=== PATIENT | female | born 1970 | race Caucasian/White ===

== ENCOUNTER 2016-12-06 13:54 | Inpatient (IN) ==
--- NOTE | 2016-12-06 14:34 | PROVIDER DOCUMENTATION ---
[id number] Abuse/Overdose - General Chief Complaint: Alcohol Withdrawal Stated Complaint: VOMITING ALCOHOL WITHDRAWAL Time Seen by Provider: 12/06/16 14:22 Source: patient Allergies/Adverse Reactions: Allergies Allergy/AdvReac Type Severity Reaction Status Date / Time No Known Allergies Allergy Verified 09/26/16 14:40 Home Medications: Home Medication List Medication Instructions Recorded Confirmed Last Taken Type Sulfamethoxazole/Trimethoprim 1 each PO BID #10 tablet 09/26/16 Unknown Rx [Bactrim Ds Tablet] - History of Present Illness-Drug/Alcohol Nature of Presenting Problem: 45 yo female pt with hx of alcohol use/withdrawal presents with nausea and abdominal pain x 4 days. Is a daily drinker, approx 6 beers. Drank alcohol 4 days ago, then started to feel sick and didn't drank for 3 days. Tried to drink last night but couldn't keep anything down. Has not eaten in 4 days, only drinking water as tolerated. RUQ abdominal pain with diarrhea. Also having panic attacks, had one upon arrival to ED. Denies fever, chest pain, current SOB (had some with panic attack but has resolved), blood in stool, blood or coffee ground vomitus, falls, LOC, seizure, or current ill contacts. Has vomited up her daily medications of potassium and Tylenol. Has hx of Hep C. Denies other medication/drug use. This episode of drinking or use began:: 4 days ago Severity: reports: moderate Situational problems related to:: reports: N/A Psychiatric Complaints: reports: anxiety Associated Symptoms: reports: anxiety, back/neck pain (chronic), diarrhea, fatigue, headaches (chronic), loss of appetite, malaise, nausea, vomiting, weakness. denies: chest pain, constipation, cough, dizziness, EENT symptoms, fever/chills, genitourinary problems, sinus congestion/drainage, seizure, shortness of breath, sensory/motor loss, syncope, trouble walking Any injuries associated with this episode of intoxication?: No (denies falls or LOC) Similar Symptoms Previously?: Yes Recently seen or treated by another doctor?: No - Substance Abuse Substance Use: reports: alcohol - Alcohol Abuse Last Drink?: 21:00 (prior to symptoms as well) Usually drinks:: daily (6 beers daily per pt) Usual alcohol intake amount?: 6 beers - Overdose Suicide Risk Assessment: drug or ETOH abuse. negative: depressed Review of Systems - Adult - REVIEW OF SYSTEMS - ADULT Constitutional: reports: fatique. denies: chills, fever, night sweats Eyes: reports: no symptoms reported Ears, Nose, Mouth & Throat: denies: ear pain, nose pain, throat pain Cardiovascular: denies: chest pain, syncope Respiratory: denies: cough, excessive sputum production, hemoptysis, shortness of breath Gastrointestinal: reports: abdominal pain, diarrhea, nausea, poor appetite, vomiting. denies: hematemesis, constipation, difficulty swallowing, rectal bleeding Genitourinary: reports: no symptoms reported. denies: discharge, hematuria, incontinence Musculoskeletal: reports: back pain (chronic, takes Tylenol daily), muscle weakness. denies: neck pain Integumentary: denies: rash Neurological: reports: headache/migraines (has chronically, takes Tylenol daily) . denies: dizziness/vertigo, loss of balance, seizure, syncope Psychiatric: reports: anxiety, alcohol/drug dependence Past History - Adult - PAST MEDICAL HISTORY-ADULT Review of Records: reports: Old Records Reviewed, Nursing Assessment Review, Medications Reviewed, Social history reviewed & non-contributory. Major Childhood Illnesses: reports: denies history Cardiovascular: reports: denies history Respiratory: reports: denies history Gastrointestinal: reports: denies history Obstetrical/Gynecological: reports: denies history Genitourinary: reports: denies history Musculoskeletal: reports: denies history Neurological: reports: Seizures/Epilepsy Psychiatric: reports: anxiety Endocrine/Immune: reports: thyroid disorder Other Conditions: reports: denies history - PRIOR SURGERIES/PROCEDURES Surgical/Procedure History: reports: - IMMUNIZATION STATUS Childhood Immunizations: See Nurse Assessment Flu Vaccine: See Nurse Assessment - FAMILY HISTORY Family History: reviewed, not pertinent - SOCIAL HISTORY Smoking: cigarettes, less than 1 pack/day Provider spent 3-5 mins advising pt. on dangers of tobacco.: Discussed manners to quit use, and f/u contacts for add'l counseling. Substance Use: alcohol Physical Exam-General - PHYSICAL EXAM-ADULT Initial Vital Signs Reviewed: Yes (tachycardic) - CONSTITUTIONAL General Appearance: alert, moderate distress (Pt was standing when came in the room, able to ambulate to bed), thin - EYES Eyes: PERRL/EOMI, scleral icterus. negative: EOM palsy, pale conjunctivae, sunken eyes - HEAD, EARS, NOSE, MOUTH & THROAT HENMT: moist mucous membranes, other (assymmetry of cheeks, nontender.) - NECK Neck: non-tender, supple. negative: thyromegaly - RESPIRATORY Respiratory: normal breath sounds, no pleuratic chest pain, no respiratory distress, no accessory muscle use. negative: crackles, rales, rhonchi, stridor , wheezing - CARDIOVASCULAR Cardiovascular: no gallop, no JVD, no murmur, tachycardia - GASTROINTESTINAL (ABDOMEN) Abdominal Exam: normal bowel sounds, no pulsatile mass, tenderness (RUQ and epigastric). negative: abdominal bruit, guarding, rigid, rebound, mass - LYMPHATIC Lymphatic: negative: cervical node tenderness, enlargement - MUSCULOSKELETAL Extremity: normal range of motion, normal inspection, no pedal edema. negative : pulse deficit, pedal edema, swelling, tenderness Peripheral Pulses: radial (R): 1+, radial (L): 1+, dorsalis-pedis (R): 1+, dorsalis-pedis (L): 1+ - SKIN Integumentary: warm/dry - NEUROLOGIC Neurologic: tree trimmer II-XII nml as tested, no motor/sensory deficits. negative: facial droop, focal weakness, motor weakness, sensory deficit - PSYCHIATRIC Psych/Mental Status: normal mood/affect, oriented x 3 Progress - PLAN OF CARE/RESULTS Progress/Plan/Lab Results: Vital Signs - 8 hr 12/06/16 16:00 12/06/16 18:00 12/06/16 19:24 Temperature 98.8 F Pulse Rate 108 H 106 H 109 H Respiratory Rate 10 L 20 20 Blood Pressure 145/99 160/98 157/95 O2 Sat by Pulse Oximetry 98 98 98 Laboratory Results - last 24 hr 12/06/16 12/06/16 12/06/16 15:17 15:17 15:17 WBC 6.98 RBC 4.30 Hgb 14.5 Hct 40.2 MCV 93.5 MCH 33.7 H MCHC 36.1 RDW Std Deviation 11.6 Plt Count 164 MPV 10.9 H Immature Gran % (Auto) 0.1 Neut % (Auto) 63.4 Lymph % (Auto) 24.8 [place] % (Auto) 11.6 H Eos % (Auto) 0.0 Baso % (Auto) 0.1 Immature Gran # (Auto) 0.01 Neut # (Auto) 4.42 Lymph # (Auto) 1.73 [place] # (Auto) 0.81 H Eos # (Auto) 0.00 Baso # (Auto) 0.01 PT INR APTT (Factor Assay) Sodium 121 L Potassium 2.6 L Chloride 78 L Carbon Dioxide 28 Anion Gap 16 BUN 16 Creatinine 0.4 L Estimated GFR/1.73 m2 > 60 BUN/Creatinine Ratio 40 Glucose 109 H Calculated Osmolality 246 Calcium 9.3 Phosphorus Magnesium Total Bilirubin 1.80 H AST 48 H ALT 29 Alkaline Phosphatase 65 Total Protein 8.2 Albumin 4.0 Globulin 4.0 Albumin/Globulin Ratio 1.0 Lipase Urine Source Urine Color Urine Clarity Urine pH Ur Specific [place] Urine Protein Urine Ketones Urine Blood Urine Nitrite Urine Bilirubin Urine Urobilinogen Urine Microscopic RBC Urine WBC Urine Microscopic WBC Ur Epithelial Cells Urine Glucose Plasma/Serum Ethyl Alc 12/06/16 12/06/16 12/06/16 15:17 15:17 17:00 WBC RBC Hgb Hct MCV MCH MCHC RDW Std Deviation Plt Count MPV Immature Gran % (Auto) Neut % (Auto) Lymph % (Auto) [place] % (Auto) Eos % (Auto) Baso % (Auto) Immature Gran # (Auto) Neut # (Auto) Lymph # (Auto) [place] # (Auto) Eos # (Auto) Baso # (Auto) PT 12.3 INR 0.88 APTT (Factor Assay) 26.4 Sodium Potassium Chloride Carbon Dioxide Anion Gap BUN Creatinine Estimated GFR/1.73 m2 BUN/Creatinine Ratio Glucose Calculated Osmolality Calcium Phosphorus Magnesium Total Bilirubin AST ALT Alkaline Phosphatase Total Protein Albumin Globulin Albumin/Globulin Ratio Lipase 51 Urine Source CLEAN CATCH Urine Color YELLOW Urine Clarity CLEAR Urine pH 6.5 Ur Specific [place] 1.010 Urine Protein TRACE A Urine Ketones NEGATIVE Urine Blood TRACE Urine Nitrite NEGATIVE Urine Bilirubin NEGATIVE Urine Urobilinogen NORMAL Urine Microscopic RBC Not Reportable Urine WBC TRACE A Urine Microscopic WBC <10 Ur Epithelial Cells <10 Urine Glucose NEGATIVE Plasma/Serum Ethyl Alc 12/06/16 18:35 WBC RBC Hgb Hct MCV MCH MCHC RDW Std Deviation Plt Count MPV Immature Gran % (Auto) Neut % (Auto) Lymph % (Auto) [place] % (Auto) Eos % (Auto) Baso % (Auto) Immature Gran # (Auto) Neut # (Auto) Lymph # (Auto) [place] # (Auto) Eos # (Auto) Baso # (Auto) PT INR APTT (Factor Assay) Sodium Potassium Chloride Carbon Dioxide Anion Gap BUN Creatinine Estimated GFR/1.73 m2 BUN/Creatinine Ratio Glucose Calculated Osmolality Calcium Phosphorus 2.8 Magnesium 1.5 Total Bilirubin AST ALT Alkaline Phosphatase Total Protein Albumin Globulin Albumin/Globulin Ratio Lipase Urine Source Urine Color Urine Clarity Urine pH Ur Specific [place] Urine Protein Urine Ketones Urine Blood Urine Nitrite Urine Bilirubin Urine Urobilinogen Urine Microscopic RBC Urine WBC Urine Microscopic WBC Ur Epithelial Cells Urine Glucose Plasma/Serum Ethyl Alc Orders Category Date Time Status Admit - [facility] Routine AdmDCTranf 12/06/16 19:08 Ordered Activity - Up with Assistance ORDERED Care 12/06/16 18:39 Active Blood Glucose Finger Stick [FSBS/Accucheck Result] NOW Care 12/06/16 14:58 Active Intake and Output-Strict ORDERED Care 12/06/16 18:39 Active Saline Loc NOW Care 12/06/16 14:52 Active Vital Signs Order Q 8-HR ASSESS Care 12/06/16 18:39 Active NPO Diet 12/06/16 18:41 Active CHEST-2 VIEWS [RAD] Stat Exams 12/06/16 16:23 Draft ALCOHOL BLOOD Stat Lab 12/06/16 15:17 Completed CBC WITH DIFF [HEME] Routine Lab 12/07/16 06:00 Ordered CBC WITH DIFF [HEME] Stat Lab 12/06/16 15:17 Completed COMPREHENSIVE METABOLIC PANEL [CHEM] Routine Lab 12/07/16 06:00 Ordered COMPREHENSIVE METABOLIC PANEL [CHEM] Stat Lab 12/06/16 15:17 Completed LIPASE [CHEM] Stat Lab 12/06/16 15:17 Completed MAGNESIUM [CHEM] Routine Lab 12/07/16 06:00 Ordered MAGNESIUM [CHEM] Stat Lab 12/06/16 18:35 Completed PHOSPHORUS [CHEM] Stat Lab 12/06/16 18:35 Completed [address]IME WITH INR PL [COAG] Stat Lab 12/06/16 15:[address] [COAG] Stat Lab 12/06/16 15:17 Completed TSH Routine Lab 12/07/16 06:00 Ordered UA NIMS W/REFLEX CULT PL [URINALYSIS] Stat Lab 12/06/16 17:00 Completed 0.9% Sodium Chloride Inj [Ns] 1,000 ml Med 12/06/16 16:23 Discontinued IV 999 mls/hr Chlordiazepoxide [Librium] Med 12/06/16 21:00 Active 50 mg PO BID Enoxaparin [Lovenox] Med 12/06/16 18:00 Active 40 mg SUBQ Q24H Lorazepam [Ativan] Med 12/06/16 18:44 Active 1 mg IV Q4H PRN PRN Magnesium Sulfate 2 gm/S.w.i. [Magnesium Sulfate 2 gm/S Med 12/06/16 18:43 Discontinued .w.i] 2 gm in 50 ml IV NOW Mvi [M.v.i.-12] 10 ml Med 12/06/16 18:45 Active Folic Acid 1 mg Magnesium Sulfate 1 gm Thiamine 100 mg 0.9% Sodium Chloride Inj [Ns] 1,000 ml IV Q24H Ns + KCl 20 Meq 1,000 ml Med 12/06/16 18:42 Active IV 125 mls/hr Ondansetron [Zofran] Med 12/06/16 18:37 Active 4 mg IV Q4H PRN PRN Potassium Chloride E.r. [Klor-Con] Med 12/06/16 16:23 Discontinued 40 meq PO NOW ONE Potassium Chloride E.r. [Klor-Con] Med 12/06/16 16:38 Discontinued 60 meq PO NOW ONE Telemetry [OM.EQ] Routine Oth 12/06/16 18:39 Active EKG [EKG] Stat Ther 12/06/16 16:23 Draft Transfer/Admit Order [TRANSFER] Routine Transfer 12/06/16 18:45 Ordered Lab report shows hypokalemia and hyponatremia. Ordered bolus of NS and K+ 60 mEq PO now. Pt candidate for admission. Discussed case with Dr. Gibbs who agrees with plan and admission. EKG reviewed, CXR ordered. Waiting further labs. Result Diagrams: 12/06/16 15:17 12/06/16 15:17 - CONSULTS/PCP/HOSPITALIST Notification #1 *Consult/PCP/Hospitalist*: Hospitalist Dr. Bass Time Discussed: 17:42 Reason/Comments: Admission for ETOH withdrawal, hypokalemia, hyponatremia Consult Disposition: Admit Departure - Departure Time of Disposition Decision: 17:40 DIAGNOSIS: Hyponatremia, Hypokalemia Alcohol withdrawal Qualifiers: Complication of substance-induced condition: uncomplicated Qualified Code(s): F10.230 - Alcohol dependence with withdrawal, uncomplicated Disposition: ADMITTED INPATIENT 09 Certified Medical Emergency: Emergent Condition: Stable Attestation - Physician/ FRANCY Attestation Patient care was provided by Advanced Practice Provider:: Yes Advanced Practice Provider:: Vinicio Correa Advanced Practice Provider documentation review:: The Mid-level provider documentation, treatment plan and medical decision making was reviewed by the physician who agrees with all treatment and medical decision making by the MLP.
[2016-12-06 15:45] LABS: AGAP 16; ALKALINE PHOSPHATASE 65 U/L (32-104); BUN 16 mg/dL (8-22); CALCIUM 9.3 mg/dL (8.8-10.2); CHLORIDE 78 mmol/L (98-107); COSMO 246; GOT 48 U/L (10-30); GPT 29 U/L (10-36); POTASSIUM 2.6 mmol/L (3.5-5.1); SODIUM 121 mmol/L (136-145); TCO2 28 mmol/L (25-35); TOTAL PROTEIN 8.2 g/dL (6.3-8.3)
[2016-12-06] MEDS ORDERED: KLOR-CON PO ONE ×2 (16:23→16:38)
[2016-12-06] MEDS ORDERED: NS 1,000 ML IV ONE (16:23)
[2016-12-06 16:27] LABS: MANUAL DIFF NEEDED? NO
[2016-12-06 16:31] LABS: BASO% 0.1 % (0.0-0.8); HEMATOCRIT 40.2 % (37.0-47.0); HEMOGLOBIN 14.5 g/dL (12.0-16.0); IMM GRAN# 0.01 X1000 (0.0-0.04); IMM GRAN% 0.1 % (0.0-0.5); LYMPH# 1.73 X1000 (1.2-3.4); LYMPH% 24.8 % (20.5-51.1); MCH 33.7 PG (27-31); MCHC 36.1 g/dL (33-37); MCV 93.5 FL (81-99); MONO# 0.81 X1000 (0.11-0.59); MONO% 11.6 % (1.7-9.3); MPV 10.9 FL (7.4-10.4); NEUT% 63.4 % (42.2-75.2); PLT 164 X1000 (130-400)
[2016-12-06 16:34] LABS: INR 0.88 (0.86-1.15); PROTIME 12.3 Seconds (12.1-15.5); PTT PL 26.4 Seconds (22.6-43.9)
--- NOTE | 2016-12-06 16:59 | EKG Report ---
Test Performed on : 12/06/2016 4:22:16 PM Test Reason : hypokalemia, hyponatremia Blood Pressure : / mmHG Vent. Rate : 111 BPM Atrial Rate : 111 BPM P-R Int : 126 ms QRS Dur : 078 ms QT Int : 360 ms P-R-T Axes : -27 092 071 degrees QTc Int : 489 ms Sinus tachycardia. Rightward axis Borderline ECG When compared with ECG of 16-APR-2016 16:59, No significant change was found Unconfirmed Result
[2016-12-06 17:16] LABS: URINE CULTURE PL NEEDED? NO
--- NOTE | 2016-12-06 17:19 | Diag Imaging Result Document ---
PROCEDURE NAME: CHEST-2 VIEWS - 12/06/2016 CHEST, 2 VIEWS: INDICATION: Electrolyte abnormalities. Smoker. COMPARISON: 06/21/2011. FINDINGS: There is pulmonary emphysema. Cardiomediastinal silhouette is within normal limits. No infiltrate, effusion, or pneumothorax is noted. Posttraumatic rib deformities, right hemithorax, are unchanged. IMPRESSION: Pulmonary emphysema. No acute abnormalities.
[2016-12-06 17:24] LABS: BILIRUBIN URINE NEGATIVE (NEGATIVE); BLOOD URINE TRACE (NEGATIVE); CLARITY CLEAR (CLEAR); COLOR YELLOW; GLUCOSE URINE NEGATIVE (NEGATIVE); LEUKOCYTES URINE TRACE (NEGATIVE); NITRITE URINE NEGATIVE (NEGATIVE); PH URINE 6.5; PROTEIN URINE TRACE mg/dL (NEGATIVE); UROBILINOGEN URINE NORMAL
[2016-12-06 17:29] LABS: URINE EPITHELIAL CELLS <10 /HPF (<10); URINE SOURCE CLEAN CATCH; URINE WBC <10 /HPF (<10)
[2016-12-06] MEDS ORDERED: NS + KCL 20 MEQ 1,000 ML IV ONE (18:42)
[2016-12-06] MEDS ORDERED: MAGNESIUM SULFATE 2 GM/S.W.I. 2 GM/50 ML IVPB IV ONE ×2 (18:43→23:00)
[2016-12-06 18:58] LABS: MAGNESIUM 1.5 mg/dL (1.5-2.7)
[2016-12-06] MEDS: M.V.I.-12 10 ML, FOLIC ACID 1 MG, MAGNESIUM SULFATE 1 GM, THIAMINE 100 MG in NS 1,000 ML IV SCH (19:20)
--- NOTE | 2016-12-06 20:11 | HISTORY AND PHYSICAL ---
PRESENTING COMPLAINT: Nausea and vomiting. HISTORY OF PRESENTING COMPLAINT: Ms Clarke is a 45-year-old female with a history of alcohol abuse who has been admitted here on 2 different occasions for the same presentation. Last time she was here was on June 2016 and discharged a day after. This time she refers that she has been drinking about 6 packs of beer on daily basis. Yesterday started having vomiting which was intractable so she decided to come into the emergency department where she was evaluated and was found to have very erratic electrolytes including a sodium of 121, potassium was 7.6 and chloride 78, was deemed necessary to admit her to correct her electrolytes abnormalities. PAST MEDICAL HISTORY: 1. History hepatitis C. 2. Alcohol abuse. 3. Chronic drug abuse. 4. Previous seizures due to withdrawal syndrome. PAST SURGICAL HISTORY: 3 times Hysterectomy ALLERGIES: None. HOME MEDICATIONS: None. SOCIAL HISTORY: Patient lives with a boyfriend who also drinks. She smokes but she has about 30 years pack history and she drinks 6 pack of beer on daily basis for the past 20 years. REVIEW OF SYSTEMS: 14 point review of system conducted with the patient is unremarkable except what we have in the HPI. Specifically patient denies any diarrhea, denies any shortness of breath or chest pain. PHYSICAL EXAM: VITALS: Blood pressure is 133/86, pulse of 115, temperature 97.8 degrees, respirations 30. GENERAL: Ms Clarke is a 45-year-old female. She was in bed. Did not seems to be in any remarkable distress. HEENT: Mucosa is pink and dry. Anicteric. Acyanotic. NECK: Supple. No JVD. CHEST: Good air entry bilaterally. No accessory muscle use. No crepitations and no rhonchi. CARDIOVASCULAR: Regular rate and rhythm. No murmurs, no rubs. No gallops. ABDOMEN: Soft, mildly tender all over but there is no any guarding or rebound. Bowel sounds are present. SAFETY ADVISOR: Patient is alert and oriented x4. Motor is 5/5 in all 4 extremities. There is no sensory deficit. Cranial nerves 2-12 have been grossly examined and are unremarkable. I did not examine the gait or cerebellar functions but patient does not have any asterixis or residual tremors. At the moment patient denies of any hallucinations. LABORATORY DATA: WBC is 6.98, hemoglobin is 14.5, platelet count of 164,000. Chemistry: Sodium is 121, potassium is 2.6, chloride is 78, bicarb is 28, total bilirubin is 1.8, AST is 48. Urinalysis is unremarkable. Toxicology. Plasma ethanol is 0. Serum osmolarity is 246. ASSESSMENT: Ms Clarke is a chronic alcohol binger who presented to the emergency department because of intractable vomiting, was found to have very abnormal electrolytes and we are admitting to correct abnormalities. 1. Intractable nausea and vomiting. 2. Severe electrolyte abnormality including hypokalemia. 3. Hyponatremia secondary to dehydration. 4. Ethanol abuse with tendency to major withdrawals. 5. History of hepatitis C. 6. Recreational drug abuse. PLAN: 1. We are going to admit Mr. Clarke to the medical floor with telemetry. Will continue with adequate IV fluids with normal saline at 125-150 mL/h. We would replace all the electrolytes abnormality including the potassium. I would do a magnesium level to see where that this. I guess that is going to be low as well as well as phosphorus so we can replace all of that. 2. Will keep the patient NPO until the nausea and vomiting is abated. Will put her on Zofran for this. I will check on the lipase just to make sure she is not in any acute pancreatitis. 3. Will put the patient on thiamine for replacement and also start her on Librium to prevent major withdrawal. cc: Jeff Bass MD [facility]
[2016-12-06] MEDS: LOVENOX SUBQ SCH (22:10)
[2016-12-06] MEDS: LIBRIUM PO SCH (22:10)
[2016-12-06] MEDS: ZOFRAN IV PRN (22:21)
[2016-12-06] MEDS: ATIVAN IV PRN (23:50)
[2016-12-07 06:23] LABS: MANUAL DIFF NEEDED? NO
[2016-12-07 06:39] LABS: BASO% 0.5 % (0.0-0.8); EOS# 0.02 X1000 (0.0-0.7); EOS% 0.3 % (0.0-10.0); HEMATOCRIT 39.4 % (37.0-47.0); HEMOGLOBIN 13.6 g/dL (12.0-16.0); LYMPH# 2.03 X1000 (1.2-3.4); LYMPH% 35.1 % (20.5-51.1); MCH 33.2 PG (27-31); MCHC 34.5 g/dL (33-37); MCV 96.1 FL (81-99); MONO# 0.82 X1000 (0.11-0.59); MONO% 14.2 % (1.7-9.3); MPV 10.8 FL (7.4-10.4); NEUT% 49.9 % (42.2-75.2); PLT 150 X1000 (130-400)
[2016-12-07 07:12] LABS: AGAP 10; ALBUMIN 3.5 g/dL (3.5-5.0); ALKALINE PHOSPHATASE 64 U/L (32-104); BUN 13 mg/dL (8-22); CALCIUM 8.4 mg/dL (8.8-10.2); CHLORIDE 98 mmol/L (98-107); COSMO 264; GOT 34 U/L (10-30); GPT 22 U/L (10-36); MAGNESIUM 2.1 mg/dL (1.5-2.7); POTASSIUM 3.3 mmol/L (3.5-5.1); SODIUM 132 mmol/L (136-145); TCO2 24 mmol/L (25-35)
[2016-12-07] MEDS: LIBRIUM PO SCH ×3 (09:04→20:59)
[2016-12-07] MEDS ORDERED: KLOR-CON PO ONE ×2 (09:14→11:45)
[2016-12-07] MEDS: ATIVAN IV PRN ×3 (11:31→21:46)
[2016-12-07] MEDS: ZOFRAN IV PRN ×2 (11:32→14:50)
[2016-12-07] MEDS ORDERED: SYNTHROID PO ONE (15:03)
[2016-12-07] MEDS ORDERED: SODIUM CHLORIDE 0.9% INJ ONE (15:30)
--- NOTE | 2016-12-07 15:54 | PROGRESS NOTE ---
DATE: 12/07/2016 SUBJECTIVE: Today Mr. Clarke refers to be doing a whole lot better. Denies any nausea and vomiting. She has been tolerating her diet very well. OBJECTIVE: Vital signs: Blood pressure is 131/72, pulse of 110, respirations 19, temperature is 98.4 degrees. General: Ms. Clarke is a 45-year-old female, who looks older than her age. She was in bed. She did not seem to be in any distress. HEENT: Mucosa is pink and moist. Anicteric and acyanotic. Neck: Supple. Chest: Good air entry bilateral. No crepitations. No rhonchi. Cardiovascular: Regular rate and rhythm. Abdomen: Soft, nontender. Extremities: No pedal edema. MANAGER OF HEALTH: Patient is alert and oriented x4. LABORATORY DATA: CBC is reviewed and is completely unremarkable. Chemistry: Sodium is 132. That is improved from yesterday which was 121. Potassium is 3.3, chloride is 98, bicarb is 24, AST is down to 34. TSH is 8.82. ASSESSMENT: 1. Intractable nausea and vomiting. This has improved. 2. Severe electrolyte abnormality, including hypokalemia and hyponatremia, which I think was related to the nausea and vomiting and dehydration. This seems to be improving. We will continue with adequate hydration and potassium supplementation. 3. Ethanol abuse with tendency to major withdrawals. Patient is currently on Librium and p.r.n. Ativan. Seems to be doing fine. 4. History of hepatitis C. 5. Recreational drug abuse. 6. Elevated thyroid stimulating hormones. Patient has a history of hypothyroidism. According to her, one of her physician's discontinued her Synthroid, but I think this is all part of her hypothyroidism. I will check a TPO and also a cholesterol level, but I think eventually patient needs to be on that because going all the way back to 2014, she did have lab evidence of severe hypothyroidism. 7. Adrenal insufficiency. There is a previous lab in 04/17/2016 which showed cortisol level of 6.7, this was a ridiculously low. I am not sure if the patient has a true adrenal insufficiency or if this was just a transient adrenal insufficiency. I am going to repeat the cortisol level and also do a stim test to have a better idea since patient keeps coming in for nausea and vomiting and most of the time we attribute it to her alcohol binge. It may be there might be a genuine underlying adrenal insufficiency that we have not been treating. cc: Jeff Bass MD
[2016-12-07] MEDS: NS + KCL 20 MEQ 1,000 ML IV SCH (16:00)
[2016-12-07] MEDS: LOVENOX SUBQ SCH (17:09)
[2016-12-07] MEDS: M.V.I.-12 10 ML, FOLIC ACID 1 MG, MAGNESIUM SULFATE 1 GM, THIAMINE 100 MG in NS 1,000 ML IV SCH (17:59)
[2016-12-07] MEDS ORDERED: TYLENOL PO PRN (23:10)
[2016-12-08] MEDS: NS + KCL 20 MEQ 1,000 ML IV SCH (05:20)
[2016-12-08] MEDS ORDERED: CORTROSYN IV ONE (06:00)
[2016-12-08] MEDS ORDERED: SODIUM CHLORIDE 0.9% INJ ONE (06:00)
[2016-12-08] MEDS ORDERED: SYNTHROID PO SCH (07:00)
[2016-12-08 07:07] LABS: MANUAL DIFF NEEDED? NO
[2016-12-08 07:18] LABS: BASO% 0.7 % (0.0-0.8); EOS% 1.7 % (0.0-10.0); HEMATOCRIT 37.9 % (37.0-47.0); HEMOGLOBIN 12.4 g/dL (12.0-16.0); IMM GRAN# 0.01 X1000 (0.0-0.04); IMM GRAN% 0.2 % (0.0-0.5); LYMPH# 2.61 X1000 (1.2-3.4); LYMPH% 43.3 % (20.5-51.1); MCH 32.6 PG (27-31); MCHC 32.7 g/dL (33-37); MCV 99.7 FL (81-99); MONO# 0.61 X1000 (0.11-0.59); MONO% 10.1 % (1.7-9.3); MPV 10.8 FL (7.4-10.4); PLT 161 X1000 (130-400)
[2016-12-08 07:37] LABS: HDL 101 mg/dL (45-65); LDL 51 mg/dL; TRIGLYCERIDES 41 mg/dL (35-135); VLDL 8 mg/dL
[2016-12-08 07:50] LABS: AGAP 10; BUN 9 mg/dL (8-22); CALCIUM 8.5 mg/dL (8.8-10.2); CHLORIDE 105 mmol/L (98-107); COSMO 274; POTASSIUM 4.3 mmol/L (3.5-5.1); SODIUM 138 mmol/L (136-145); TCO2 23 mmol/L (25-35)
[2016-12-08] MEDS: LIBRIUM PO SCH (09:00)
--- NOTE | 2016-12-08 11:58 | DISCHARGE SUMMARY ---
ADMISSION DATE: 12/06/2016 DISCHARGE DATE: 12/08/2016 ADMISSION DIAGNOSES: 1. Intractable nausea and vomiting. 2. Severe electrolyte abnormality including hypokalemia. 3. Hyponatremia secondary to dehydration. 4. Ethanol abuse with tendency to major withdrawal. 5. History of hepatitis C. 6. Recreational drug abuse. DISCHARGE DIAGNOSES: 1. Intractable nausea, vomiting, resolved. 2. Severe electrolyte abnormality resolved. 3. Ethanol abuse with tendency to major withdrawal. 4. History of hepatitis C. 5. Recreational drug use. 6. Hypothyroidism. 7. Adrenal insufficiency. SUMMARY OF FINDINGS: This is a 45-year-old, female with a history of alcohol abuse who has been admitted here on 2 different occasions with the same presentation. Last time here was June, and discharged the day after. States that she has been drinking about a 6 pack of beer on a daily basis and began vomiting on the day prior to arrival. That was intractable so she decided to come to the emergency department. Was found to have a sodium of 121, potassium was 7.6, chloride was 78. She was admitted, placed on IV hydration. We supplemented her potassium, held NPO initially. Her electrolytes have all improved. Sodium is up to 138 today. Potassium is at 4.3. She was noted on 12/07/2016 to have an elevated TSH level. Stated that her physician had taken her off of her medications a while back, but it is felt that some of this may be related to her hypothyroidism so we started her back on low-dose 50 mcg p.o. daily, and it is felt now that she can safely be discharged home. DISCHARGE MEDICATIONS: 1. She is given a prescription for the levothyroxine 50 mcg p.o. daily #60 with no refills. 2. Cortef 5 mg p.o. at bedtime #30 with no refills. 3. Librium 10 mg p.o. b.i.d. #20 with no refills. FOLLOWUP: She will need to follow with an sales representative sales manager in [place] of her choice to follow along with her adrenal insufficiency and hypothyroidism. It was discussed at length with this patient about cessation of ETOH due to her multiple medical problems. She verbalizes understanding. TIME SPENT ON DISCHARGE: 35 minute discharge. Dictated by ADRIAN Sanches for Jeff Bass MD cc: ADRIAN Sanches MD
[2016-12-08 14:30] VITALS: BP 160/92
[2016-12-08] MEDS ORDERED: CORTEF PO SCH (21:00)
== END 2016-12-08 16:52 | disposition home or self-care (01) ==
LOC: P.ED 13:54 → P.MEDSURG 19:39
PROVIDERS: ATTEND Internal Medicine

== ENCOUNTER 2017-02-01 08:53 | Inpatient (IN) ==
[2017-02-01] MEDS ORDERED: ATIVAN IV ONE ×2 (08:56→11:22)
[2017-02-01] MEDS ORDERED: ZOFRAN IV ONE (09:03)
[2017-02-01 09:17] LABS: MANUAL DIFF NEEDED? NO
[2017-02-01 09:27] LABS: UR AMPHETAMINES QUAL NONE DETECTED (NONE DETECT); UR BARBITUATES QUAL NONE DETECTED (NONE DETECT); UR BENZODIAZEPIN QUAL NONE DETECTED (NONE DETECT); UR CANNABINOIDS QUAL PRESUMPTIVE POSITIVE (NONE DETECT); UR COCAINE QUAL PRESUMPTIVE POSITIVE (NONE DETECT); UR MDMA QUAL NONE DETECTED (NONE DETECT); UR METHADONE QUAL NONE DETECTED (NONE DETECT); UR METHAMPHETAMINE QUAL NONE DETECTED (NONE DETECT); UR OPIATES QUAL NONE DETECTED (NONE DETECT); UR OXYCODONE QUAL NONE DETECTED (NONE DETECT); UR PCP QUAL NONE DETECTED (NONE DETECT); UR TCA QUAL NONE DETECTED (NONE DETECT)
[2017-02-01 09:39] LABS: AGAP 20; ALBUMIN 4.9 g/dL (3.5-5.0); ALKALINE PHOSPHATASE 74 U/L (32-104); BUN 5 mg/dL (8-22); CALCIUM 9.4 mg/dL (8.8-10.2); CHLORIDE 84 mmol/L (98-107); COSMO 264; GOT 74 U/L (10-30); GPT 44 U/L (10-36); MAGNESIUM 1.2 mg/dL (1.5-2.7); SODIUM 133 mmol/L (136-145); TCO2 30 mmol/L (25-35); TOTAL PROTEIN 9.7 g/dL (6.3-8.3)
[2017-02-01 09:42] LABS: BASO% 0.2 % (0.0-0.8); HEMATOCRIT 42.7 % (37.0-47.0); HEMOGLOBIN 14.8 g/dL (12.0-16.0); IMM GRAN# 0.02 X1000 (0.0-0.04); IMM GRAN% 0.1 % (0.0-0.5); LYMPH# 1.14 X1000 (1.2-3.4); LYMPH% 8.4 % (20.5-51.1); MCH 32.7 PG (27-31); MCHC 34.7 g/dL (33-37); MCV 94.3 FL (81-99); MONO# 0.67 X1000 (0.11-0.59); MPV 10.5 FL (7.4-10.4); NEUT% 86.3 % (42.2-75.2); PLT 200 X1000 (130-400); RBC 4.53 XMIL (4.2-5.4)
[2017-02-01 09:48] LABS: POTASSIUM 2.5 mmol/L (3.5-5.1)
[2017-02-01] MEDS: M.V.I.-12 10 ML, FOLIC ACID 1 MG, MAGNESIUM SULFATE 1 GM, THIAMINE 100 MG in NS 1,000 ML IV SCH (09:50)
[2017-02-01] MEDS ORDERED: KLOR-CON PO ONE (09:51)
[2017-02-01] MEDS ORDERED: APRESOLINE IV ONE (10:36)
--- NOTE | 2017-02-01 10:41 | PROVIDER DOCUMENTATION ---
This chart was entered by Krysta Chakraborty Scribe, acting as scribe for Elyse Gibbs MD. HPI-General Adult - General Chief Complaint: Alcohol Withdrawal Stated Complaint: ETOH Withdrawal Time Seen by Provider: 02/01/17 08:56 Source: patient Allergies/Adverse Reactions: Patient Allergies Allergy/AdvReac Type Severity Reaction Status Date / Time No Known Allergies Allergy Verified 09/26/16 14:40 Home Medications: Home Medication List Medication Instructions Recorded Confirmed Last Taken Type Potassium Bicarbonate/Cit AC 25 meq PO DAILY 02/01/17 02/01/17 01/31/17 History [Potassium 25 Meq Tablet Eff] - History of Present Illness -Gen Adult Nature of Presenting Problems: Pt is 46 y/o F presents to the ED with N and V. Pt states symptoms have been present for 24 hrs. Pt denies F or chills. Pt states hx of seizures. Pt states seizure yesterday but has not had one today. Pt states having an alcoholic drink yesterday at 1200. Location of Pain/Injury: reports: none Pain Radiation: reports: no radiation Quality of Pain: reports: none Severity: reports: mild Onset/Duration: reports: 24 hours ago Timing: reports: still present Context/Activities at Onset: reports: light activity Modifying Factors: improves with: nothing Associated Symptoms: reports: nausea, vomiting. denies: anxiety, arm pain, back /neck pain, chest pain, constipation, cough, diaphoresis, diarrhea, dizziness, EENT symptoms, fatigue, fever/chills, genitourinary problems, headaches, heartburn, joint pain, loss of appetite, malaise, muscle aches, sinus congestion /drainage, rash, seizure, shortness of breath, sensory/motor loss, pain with inspiration, swelling/mass in abdomen, syncope, weakness, trouble walking Similar Symptoms Previously?: Yes Recently seen or treated by another doctor?: No Review of Systems - Adult - REVIEW OF SYSTEMS - ADULT Constitutional: reports: no symptoms reported Eyes: reports: no symptoms reported Ears, Nose, Mouth & Throat: reports: no symptoms reported Cardiovascular: reports: no symptoms reported Respiratory: reports: no symptoms reported Gastrointestinal: reports: nausea, vomiting. denies: abdominal pain, diarrhea Genitourinary: reports: no symptoms reported Musculoskeletal: reports: no symptoms reported Integumentary: reports: no symptoms reported Neurological: reports: no symptoms reported Psychiatric: reports: no symptoms reported Endocrine: reports: no symptoms reported Hematologic/Lymphatic: reports: no symptoms reported Allergic/Immunologic: reports: no symptoms reported All Other Systems: Reviewed and Negative Past History - Adult - PAST MEDICAL HISTORY-ADULT Review of Records: reports: Nursing Assessment Review, Medications Reviewed, Social history reviewed & non-contributory. Major Childhood Illnesses: reports: denies history Cardiovascular: reports: denies history Respiratory: reports: denies history Gastrointestinal: reports: denies history Obstetrical/Gynecological: reports: denies history Genitourinary: reports: denies history Musculoskeletal: reports: denies history Neurological: reports: Seizures/Epilepsy Psychiatric: reports: anxiety Endocrine/Immune: reports: thyroid disorder Other Conditions: reports: denies history - PRIOR SURGERIES/PROCEDURES Surgical/Procedure History: reports: - IMMUNIZATION STATUS Childhood Immunizations: See Nurse Assessment Flu Vaccine: See Nurse Assessment - FAMILY HISTORY Family History: reviewed, not pertinent - SOCIAL HISTORY Smoking: cigarettes, greater than 1 pack/day Provider spent 3-5 mins advising pt. on dangers of tobacco.: Discussed manners to quit use, and f/u contacts for add'l counseling. Substance Use: alcohol Alcohol Use Frequency: every day Number of drinks per typical drinking period:: 5-10 drinks Living Situation: family Physical Exam-General - PHYSICAL EXAM-ADULT Initial Vital Signs Reviewed: Yes - CONSTITUTIONAL General Appearance: appears well, alert, no apparent distress - EYES Eyes: PERRL/EOMI, pink conjunctivae - HEAD, EARS, NOSE, MOUTH & THROAT HENMT: normocephalic/atraumatic, moist mucous membranes, normal ENT inspection - NECK Neck: non-tender, full range of motion, supple, normal inspection - RESPIRATORY Respiratory: chest non-tender, lungs clear, normal breath sounds - CARDIOVASCULAR Cardiovascular: normal peripheral pulses, regular rate, rhythm - GASTROINTESTINAL (ABDOMEN) Abdominal Exam: normal bowel sounds, non tender, soft, no organomegaly - LYMPHATIC Lymphatic: no adenopathy - MUSCULOSKELETAL Back Exam: normal inspection, no CVA tenderness, no vertebral tenderness Extremity: normal range of motion, non-tender, normal gait, normal inspection - SKIN Integumentary: normal color, normal turgor, warm/dry - NEUROLOGIC Neurologic: grossly normal - PSYCHIATRIC Psych/Mental Status: normal mood/affect, oriented x 3 Progress - PLAN OF CARE/RESULTS Progress/Plan/Lab Results: Vital Signs - 8 hr 02/01/17 08:56 Temperature 98.3 F Pulse Rate 92 H Respiratory Rate 18 Blood Pressure 173/112 O2 Sat by Pulse Oximetry 100 Orders Category Date Time Status Saline Loc DIRECTED Care 02/01/17 08:58 Active ALCOHOL BLOOD Stat Lab 02/01/17 08:30 Received CBC WITH ELECTRONIC DIFF [HEME] Stat Lab 02/01/17 08:30 Results COMPREHENSIVE METABOLIC PANEL [CHEM] Stat Lab 02/01/17 08:30 Received MAGNESIUM [CHEM] Stat Lab 02/01/17 08:30 Received URINE DRUG SCREEN PL Stat Lab 02/01/17 09:05 Received Lorazepam [Ativan] Med 02/01/17 08:56 Discontinued 1 mg IV NOW ONE Mvi [M.v.i.-12] 10 ml Med 02/01/17 09:00 Active Folic Acid 1 mg Magnesium Sulfate 1 gm Thiamine 100 mg 0.9% Sodium Chloride Inj [Ns] 1,000 ml IV DAILY Ondansetron [Zofran] Med 02/01/17 09:03 Discontinued 4 mg IV NOW ONE Pulse Oximetry Stat Oth 02/01/17 08:58 Active Result Diagrams: 02/01/17 08:30 02/01/17 08:30 - EKG 1 Time of EKG reading by physician:: 10:14 EKG Read and Signed by:: Elyse Gibbs EKG Interpretation (*Must complete 3 of following elements*): Abnormal Rate: 106 Rhythm: sinus tachycardia Comments: rightward axis - CONSULTS/PCP/HOSPITALIST Notification #1 *Consult/PCP/Hospitalist*: Dr. Beltran Time Discussed: 10:37 Consult Disposition: Admit Departure - Departure Date of Disposition Decision: 02/01/17 Time of Disposition Decision: 10:37 DIAGNOSIS: Hypokalemia, Seizure Alcohol withdrawal Qualifiers: Complication of substance-induced condition: with unspecified complication Qualified Code(s): F10.239 - Alcohol dependence with withdrawal, unspecified Disposition: ADMITTED INPATIENT 09 Certified Medical Emergency: Emergent Condition: Stable - Critical Care Note This patient required my direct & personal management of CC.: Yes Total Time (mins): 35 Critical Care Statement: This patient required my direct personal management to treat or rule out processes, the absence of which, could potentiallly result in sudden, clinically significant life or limb threatening deterioration. This chart was documented by the indicated scribe, (Krysta Chakraborty Scribe) and accurately reflects the services I performed and decisions made by me, Elyse Gibbs MD, as attested by the provider's signature.
--- NOTE | 2017-02-01 10:43 | EKG Report ---
Test Performed on : 02/01/2017 10:14:47 AM Test Reason : Cocaine abuse Blood Pressure : / mmHG Vent. Rate : 106 BPM Atrial Rate : 106 BPM P-R Int : 114 ms QRS Dur : 080 ms QT Int : 340 ms P-R-T Axes : 006 090 065 degrees QTc Int : 451 ms Sinus tachycardia. Rightward axis Borderline ECG When compared with ECG of 06-DEC-2016 16:22, No significant change was found Unconfirmed Result
[2017-02-01] MEDS ORDERED: NORCO-7.5 PO ONE (11:22)
[2017-02-01] MEDS ORDERED: ATIVAN IV PRN (12:31)
[2017-02-01] MEDS ORDERED: DULCOLAX PR PRN (12:32)
[2017-02-01] MEDS ORDERED: MAALOX PLUS LIQUID PO PRN (12:32)
[2017-02-01] MEDS ORDERED: SENOKOT PO PRN (12:32)
[2017-02-01] MEDS ORDERED: ZOFRAN IV PRN (12:32)
[2017-02-01] MEDS ORDERED: IMODIUM PO PRN (12:32)
[2017-02-01 12:54] LABS: AMYLASE 93 U/L (20-200); LIPASE 29 U/L (13-60)
[2017-02-01] MEDS: LIBRIUM PO SCH ×2 (13:40→19:57)
--- NOTE | 2017-02-01 15:50 | HISTORY AND PHYSICAL ---
PRIMARY CARE PHYSICIAN: [facility]. CHIEF COMPLAINT: Nausea and vomiting for the past 24 hours and a seizure yesterday. HISTORY OF PRESENTING ILLNESS: This is a 46-year-old, female. She was admitted to [facility] on 12/06/2016 through 12/08/2016 with the same complaints. She had a history of alcohol abuse with withdrawals, recreational drug abuse and history of hepatitis C. She presents to [facility] ER today with a complaint of nausea, vomiting for 24 hours, a seizure yesterday. She states she last drink alcohol yesterday and normally drinks anywhere from 5-10 alcoholic beverages daily. She is a 1 pack a day smoker. On arrival, her urine drug screen was presumptive positive for cocaine and cannabinoids. She had a potassium of 2.5 and magnesium of 1.4. She was noted to be tachycardic in the 130s-140s and appears to be in active withdrawal from alcohol at this time. So, she is being admitted to the Intensive Care Unit for further evaluation and treatment. It is noted in the emergency room that she received 60 mEq potassium x1 p.o., Ativan 1 mg IV x2 separate doses, Zofran 4 mg IV x1 dose, hydralazine 15 mg IV x1 and a [place] 7.5, one p.o. x 1 while in the emergency room. PAST MEDICAL HISTORY: Hepatitis C, alcohol abuse, chronic drug abuse, hypothyroidism, and seizures due to alcohol withdrawal syndrome. PAST SURGICAL HISTORY: section and a hysterectomy. FAMILY HISTORY: Noncontributory. SOCIAL HISTORY: She currently lives with family. She is a 9-ichj-b-day smoker. Drinks 5-10 alcoholic drinks daily, and her urine drug screen was positive for cocaine and marijuana. It is unknown the last time she used both of those, as patient is lethargic from receiving her Ativan for her alcohol withdrawal at this time. ALLERGIES: She has no known drug allergies. HOME MEDICATIONS: She listed potassium 25 mEq p.o. daily and that will be held. LABORATORY DATA: White blood cell count of 13.50, hemoglobin 14.8, hematocrit 42.7, platelets 200,000. Sodium of 133, potassium 2.5, chloride 84, CO2 of 30. BUN of 5, creatinine 0.4, glucose 110. Magnesium was 1.2. AST of 74 and ALT of 44. Troponin was negative at 0.010. Amylase of 93, lipase 29. Urine drug screen was positive for cocaine and cannabinoids. Serum alcohol level was 15. EKG showed sinus tachycardia at 106 on arrival. REVIEW OF SYSTEMS: Per her ER record, she was positive for nausea, vomiting, shaking, tachycardia, anxiety, otherwise negative review of systems. PHYSICAL EXAMINATION: VITAL SIGNS: On arrival, she had a temperature of 98.3 degrees, pulse is 92, respirations 18, blood pressure was 173/112. Currently, her heart rate is down to 110 and her blood pressure is 134/82, saturating 94% on room air. GENERAL: This is a 46-year-old, female, who is lying in the bed, unable to answer questions due to lethargy from receiving 2 doses of 1 mg Ativan. Information obtained from previous medical records, ER record, and her mom is at the bedside also. HEENT: Appears normocephalic and atraumatic. Pupils are equal, round, reactive to light. Extraocular movements are intact. Oropharynx and nares are clear. NECK: Supple. LUNGS: Clear to auscultation bilaterally with equal lung expansion and chest wall movement. HEART: With regular rate and rhythm. No murmurs, rubs, or gallops. ABDOMEN: Soft, nontender, nondistended. Bowel sounds are present x4 quadrants. EXTREMITIES: There is no clubbing, cyanosis, or edema. NEUROLOGIC: The cranial nerves 2-12 are grossly intact from best seen as she is lethargic at this time. ASSESSMENT: 1. Alcohol withdrawal. 2. Hypokalemia. 3. Hypertension. 4. Hypomagnesemia. 5. Seizure. 6. Hypertension. PLAN: She will be admitted to the Intensive Care Unit at [place], placed on telemetry, placed on seizure precautions. Regular diet. We are giving a banana bag IV daily, Librium 100 mg p.o. q.6 hours, high dose taper. Ativan 1 mg IV q.4 hours p.r.n., folic acid 1 mg p.o. daily and thiamine 100 mg p.o. daily. We will recheck a CBC, BMP, and a magnesium level in the a.m. Dictated by ADRIAN Sanches for Aleksey Beltran MD cc: ADRIAN Sanches MD
[2017-02-01] MEDS ORDERED: MAGNESIUM SULFATE 4 GM/S.W.I. 4 GM/100 ML IVPB IV ONE (16:15)
[2017-02-01] MEDS: TYLENOL PO PRN (19:58)
[2017-02-02] MEDS: LIBRIUM PO SCH ×4 (00:46→18:38)
[2017-02-02 06:18] LABS: MANUAL DIFF NEEDED? NO
[2017-02-02 06:41] LABS: BASO% 0.5 % (0.0-0.8); EOS# 0.03 X1000 (0.0-0.7); EOS% 0.4 % (0.0-10.0); HEMATOCRIT 40.4 % (37.0-47.0); HEMOGLOBIN 13.8 g/dL (12.0-16.0); IMM GRAN# 0.01 X1000 (0.0-0.04); IMM GRAN% 0.1 % (0.0-0.5); LYMPH# 1.97 X1000 (1.2-3.4); LYMPH% 25.6 % (20.5-51.1); MCH 32.9 PG (27-31); MCHC 34.2 g/dL (33-37); MCV 96.4 FL (81-99); MONO# 0.91 X1000 (0.11-0.59); MONO% 11.8 % (1.7-9.3); MPV 10.7 FL (7.4-10.4); NEUT% 61.6 % (42.2-75.2); PLT 183 X1000 (130-400); RBC 4.19 XMIL (4.2-5.4)
[2017-02-02 07:34] LABS: AGAP 15; ALBUMIN 3.9 g/dL (3.5-5.0); ALKALINE PHOSPHATASE 64 U/L (32-104); BUN 13 mg/dL (8-22); CALCIUM 9.2 mg/dL (8.8-10.2); CHLORIDE 93 mmol/L (98-107); COSMO 268; GOT 48 U/L (10-30); GPT 32 U/L (10-36); MAGNESIUM 2.1 mg/dL (1.5-2.7); POTASSIUM 3.2 mmol/L (3.5-5.1); SODIUM 134 mmol/L (136-145); TCO2 26 mmol/L (25-35); TOTAL PROTEIN 8.1 g/dL (6.3-8.3)
[2017-02-02] MEDS: TYLENOL PO PRN ×2 (08:20→16:01)
[2017-02-02] MEDS: VITAMIN B-1 PO SCH (08:20)
[2017-02-02] MEDS: FOLIC ACID PO SCH (08:20)
[2017-02-02] MEDS ORDERED: KLOR-CON PO ONE (11:45)
[2017-02-02] MEDS: M.V.I.-12 10 ML, FOLIC ACID 1 MG, MAGNESIUM SULFATE 1 GM, THIAMINE 100 MG in NS 1,000 ML IV SCH (12:23)
[2017-02-02] MEDS ORDERED: PRINIVIL ONE (14:23)
[2017-02-02 14:27] LABS: BILIRUBIN URINE NEGATIVE (NEGATIVE); BLOOD URINE NEGATIVE (NEGATIVE); CLARITY SL. CLOUDY (CLEAR); COLOR YELLOW; GLUCOSE URINE NEGATIVE (NEGATIVE); LEUKOCYTES URINE 1+ (NEGATIVE); NITRITE URINE POSITIVE (NEGATIVE); PROTEIN URINE TRACE mg/dL (NEGATIVE); UROBILINOGEN URINE 1+(1 mg/dL)
[2017-02-02 14:28] LABS: URINE RBC <10 /HPF (<10)
[2017-02-02 14:29] LABS: URINE CAST NONE SEEN /LPF; URINE CRYSTAL NONE SEEN /HPF; URINE CULTURE PL NEEDED? YES; URINE EPITHELIAL CELLS >10 /HPF (<10); URINE SOURCE CLEAN CATCH
[2017-02-02] MEDS ORDERED: PRINIVIL PO ONE (14:33)
[2017-02-02] MEDS: ROCEPHIN 1 GM/NS 1 GM/50 ML IVPB IV SCH (18:38)
--- NOTE | 2017-02-02 18:53 | PROGRESS NOTE ---
DATE: 02/02/2017 SUBJECTIVE: Patient notes she is feeling a little bit better this morning. She is having less nausea and vomiting, less abdominal pain. She denies any current fevers or chills. PHYSICAL EXAMINATION: Vital Signs: Temperature 97, pulse 100, respiratory rate 24, blood pressure , saturating 99% on room air. General: Patient is awake, alert, oriented. She is currently in no respiratory distress. Speech is regular. Memory is intact. Neck: Supple. Cardiovascular: Regular rate. Chest: Clear. Abdomen: Soft. Extremities: Moves all extremities. Neurologic: No changes. Skin: Warm and dry. No rashes. DIAGNOSTIC DATA: WBC 13. Sodium 134. Potassium 3.2. Magnesium 2.1. ASSESSMENT: 1. Hypomagnesemia. Resolved. 2. Acute hepatitis. Improving. 3. Hypokalemia. Improving. 4. Hyponatremia. Improving. 5. Leukocytosis. Resolved. 6. Acute alcohol withdrawal. Stable. 7. Hypertension. Stable. 8. History of seizure disorder. Stable. 9. Acute urinary tract infection. We will continue her on Rocephin. cc: Aleksey Beltran MD
[2017-02-03] MEDS: LIBRIUM PO SCH ×4 (00:47→18:27)
[2017-02-03] MEDS: FOLIC ACID PO SCH (08:55)
[2017-02-03] MEDS: PRINIVIL PO SCH (08:55)
[2017-02-03] MEDS: M.V.I.-12 10 ML, FOLIC ACID 1 MG, MAGNESIUM SULFATE 1 GM, THIAMINE 100 MG in NS 1,000 ML IV SCH (08:55)
[2017-02-03] MEDS: VITAMIN B-1 PO SCH (08:56)
--- NOTE | 2017-02-03 10:09 | PROGRESS NOTE ---
DATE: 02/03/2017 SUBJECTIVE: Patient without any new complaints this morning. States she does feel generally back to her baseline. Denies any nausea, vomiting. Denies any dysuria, urgency, frequency. Denies any hesitancy. OBJECTIVE: Vital Signs: On physical, temp 98, pulse 91, respiratory 20, BP 147/95. General: Patient is awake, alert. She is currently in no respiratory distress. She is lying flatly in the bed. Neck: Supple. CV: Regular rate. Chest: Relatively clear. Abdomen: Soft. Extremities: Moves all extremities. LABS: Currently pending. Urine demonstrates more incubation required on her culture. ASSESSMENT: 1. Urinary tract infection. We will continue Rocephin until cultures return. 2. Hypertension. Blood pressures are better on lisinopril. 3. Acute alcohol withdrawal, stable. 4. Hypokalemia, stable. 5. Hypomagnesemia, stable. 6. Hypokalemia. We will continue to replace and follow. PLAN: We will continue medications as noted. Hopefully home in 1-2 days. cc: Aleksey Beltran MD
[2017-02-03] MEDS: ROCEPHIN 1 GM/NS 1 GM/50 ML IVPB IV SCH (18:27)
[2017-02-03] MEDS: TYLENOL PO PRN (20:11)
[2017-02-04] MEDS: LIBRIUM PO SCH ×2 (00:17→06:20)
[2017-02-04 06:30] LABS: HEMATOCRIT 36.7 % (37.0-47.0); HEMOGLOBIN 12.3 g/dL (12.0-16.0); MCH 32.9 PG (27-31); MCHC 33.5 g/dL (33-37); MCV 98.1 FL (81-99); MPV 10.2 FL (7.4-10.4); RBC 3.74 XMIL (4.2-5.4)
[2017-02-04 06:56] LABS: AGAP 10; ALBUMIN 3.2 g/dL (3.5-5.0); ALKALINE PHOSPHATASE 91 U/L (32-104); BUN 7 mg/dL (8-22); CALCIUM 8.5 mg/dL (8.8-10.2); CHLORIDE 103 mmol/L (98-107); COSMO 272; GOT 25 U/L (10-30); GPT 20 U/L (10-36); MAGNESIUM 1.3 mg/dL (1.5-2.7); SODIUM 137 mmol/L (136-145); TCO2 24 mmol/L (25-35); TOTAL PROTEIN 6.2 g/dL (6.3-8.3)
[2017-02-04] MEDS ORDERED: MAGNESIUM SULFATE 2 GM/S.W.I. 2 GM/50 ML IVPB IV ONE (09:01)
[2017-02-04] MEDS ORDERED: KLOR-CON PO SCH (09:15)
[2017-02-04] MEDS: FOLIC ACID PO SCH (09:23)
[2017-02-04] MEDS: PRINIVIL PO SCH (09:23)
[2017-02-04] MEDS: M.V.I.-12 10 ML, FOLIC ACID 1 MG, MAGNESIUM SULFATE 1 GM, THIAMINE 100 MG in NS 1,000 ML IV SCH (09:23)
[2017-02-04] MEDS: VITAMIN B-1 PO SCH (09:23)
[2017-02-04 12:01] VITALS: BP 146/84
--- NOTE | 2017-02-04 16:47 | DISCHARGE SUMMARY ---
ADMISSION DATE: 02/01/2017 DISCHARGE DATE: 02/04/2017 PRIMARY CARE PHYSICIAN: [facility]. ADMISSION DIAGNOSES: 1. Alcohol withdrawal. 2. Hypokalemia. 3. Hypertension. 4. Hypomagnesemia. 5. Seizure. 6. Hypertension. DISCHARGE DIAGNOSES: 1. Alcohol withdrawal. 2. Hypokalemia. 3. Hypertension. 4. Hypomagnesemia. 5. Seizure. 6. Hypertension. SUMMARY OF FINDINGS: This is a 46-year-old, female who presented to the emergency room with complaints of nausea and vomiting for 24 hours, stating that she had a seizure on the day prior to arrival. Drank her last drink of alcohol on the day prior to arrival, but normally drinks anywhere from 5-10 alcoholic beverages a day. She is a 1 pack-a-day smoker. Her urine drug screen was presumptive positive for cocaine and cannabinoids. She was noted to have a potassium of 2.5 and a magnesium of 1.4, noted to be tachycardic in the 130s-140s, and be in active withdrawal from alcohol at the time of arrival. She was initially admitted to the intensive care unit, was placed on Ativan and Librium. Given IV hydration. We supplemented her magnesium and potassium. She was given a banana bag of fluids daily and then transitioned over to folic acid 1 mg p.o. daily, thiamine 100 mg p.o. daily. She has responded well to treatment. Her urinalysis was positive for urinary tract infection. Urine culture grew out diphtheroids, and today it is felt that she can safely be discharged home. She will be given a prescription for Bactrim 1 p.o. b.i.d. #6 with no refills, lisinopril 10 mg 1 p.o. daily #30 with 2 refills, and Librium 25 mg p.o. q. 12 hours #12 with no refills for alcohol withdrawal. She has been instructed on EtOH cessation and verbalizes understanding. She will also continue her home medications of potassium bicarbonate 25 mEq p.o. daily. FOLLOWUP: She will follow up with the [facility] in 1-2 weeks, and call their office for an appointment. All discharge instructions have been reviewed with the patient, and she verbalized understanding. TIME SPENT: 35 minute discharge. Dictated by ADRIAN Sanches for Aleksey Beltran MD cc: ADRIAN Sanches MD
== END 2017-02-04 14:10 | disposition home or self-care (01) ==
LOC: P.ED 08:53 → P.EDIPHOLD 11:43 → P.ICU 15:28 → P.MEDSURG 02-02 14:50
PROVIDERS: ATTEND Family Medicine